=== PATIENT | female | born 1995 | race Caucasian/White ===

== ENCOUNTER 2016-10-01 17:39 | Emergency (ER) | payer OTHER ==
[~2016-10-01] VITALS: Ht 157.5 cm; Wt 57.8 kg
[2016-10-01 17:53] VITALS: TEMP 36.8; Ht 157.5 cm; Wt 57.8 kg
--- NOTE | 2016-10-01 19:23 | EMERGENCY ROOM VISIT NOTE ---
History Report prepared by Dre: Lisbet Christie Under the Supervision of: Dr. Xu Ford D.O. First contact with patient: 19:14 Chief Complaint: OTHER COMPLAINT Stated Complaint: TAMPON STUCK History of Present Illness The patient is a 21 year old female who presents to the Emergency Room with complaints of a constant tampon that is stuck beginning last night. She states that she was drinking last night and can not get the tampon out. She notes associated pelvic pain. Source of History: patient Onset: last night Position: other (vagina) Quality: other (stuck tampon) Timing: constant Note: The patient has associated pelvic pain. Review of Systems See HPI for pertinent positives & negatives. A total of 10 systems reviewed and were otherwise negative. Past Medical & Surgical Medical Problems: (1) No Known Active Medical Problems Family History No pertinent family history stated. Social History Smoking Status: Never Smoker Smokeless Tobacco Use: No Alcohol Use: occasionally Housing Status: lives with roommate Occupation Status: [employer] Current/Historical Medications No Active Prescriptions or Reported Meds Allergies Coded Allergies: No Known Allergies (Unverified , 10/01/16) Physical Exam Vital Signs Date Time Temp Pulse Resp B/P Pulse Ox O2 Delivery O2 Flow Rate FiO2 10/01/16 19:32 98 18 143/96 100 10/01/16 17:53 36.8 93 19 149/83 97 Room Air Physical Exam GENERAL: Patient is awake, alert, and in no acute distress. Patient is resting comfortably and showing no signs of anxiety EYES: The conjunctivae are clear. The pupils are round and reactive. EARS, NOSE, MOUTH AND THROAT: The nose is without any evidence of any deformity. Mucous membranes are moist tongue is midline RESPIRATORY: Normal respiratory effort is noted there is no evidence of wheezing rhonchi or rales CARDIOVASCULAR: Regular rate and rhythm noted there no murmurs rubs or gallops normal S1 normal S2 GASTROINTESTINAL: The abdomen is soft. Bowel sounds are present in all quadrants. Abdomen is nontender MUSCULOSKELETAL/EXTREMITIES: There is no evidence of gross deformity full range of motion is noted in the hips and shoulders SKIN: There is no obvious evidence of any rash. There are no petechiae, pallor or cyanosis noted. NEUROLOGIC: Patient is awake alert and oriented x3 : Speculum exam revealed no foreign body, cervix was clear and nonerythematous , there was scant brown discharge noted consistent with patients menstrual cycle. On bimanual exam no cervical motion tenderness noted and no foreign body located, full ROM. Medical Decision & Procedures ED Course 1913: The patient was evaluated in room A10. A complete history and physical examination were performed. 1918: There was a female present for the patient's exam. 1931: Upon reevaluation, the patient is hemodynamically stable. I discussed the results and treatment plan with the patient. She verbalized agreement of the treatment plan. The patient was discharged home. Medical Decision Nursing notes reviewed. Differential diagnosis this patient could include foreign body, infection, laceration, other trauma, sexual assault, and other differential diagnoses were considered. The patient is a 21-year-old female who presented to the emergency department for an evaluation of possible vaginal foreign body. The patient thought that she had a tampon still stuck in her vagina that she did not remove the night before. On exam there is no foreign body noted. Bimanual exam as well as speculum exam did not reveal a definite foreign body. She had no signs of infection. She was recently treated for a vaginal infection which was not sexually transmitted in nature. I explained to her that her cervix was clear and I do not feel there is any ongoing infection but I did encourage her to follow-up with her primary [employer] physician for recheck and reculture. She's also encouraged return to the emergency department immediately if signs of retained foreign body were noted such as severe pain discharge or any other worrisome symptoms were to develop. Impression Primary Impression: evaluation for vaginal foreign body Scribe Attestation The scribe's documentation has been prepared under my direction and personally reviewed by me in its entirety. I confirm that the note above accurately reflects all work, treatment, procedures, and medical decision making performed by me. Departure Information Dispostion Home / Self-Care Prescriptions No Active Prescriptions or Reported Meds Referrals No Doctor, Assigned (PCP) Forms HOME CARE DOCUMENTATION FORM, IMPORTANT VISIT INFORMATION, WORK / SCHOOL INSTRUCTIONS Patient Instructions ED Foreign Body Vaginal, My [facility]
[2016-10-01 19:32] VITALS: BP 143/96; PULSE 98; O2SAT 100
== END 2016-10-01 19:33 | disposition home or self-care (01) ==
LOC: C.EDB 17:40 → C.EDA 19:33
DX: Z03.89 Encounter for observation for other suspected diseases and conditions ruled out (principal)